=== PATIENT | male | born 1980 | race Asian ===

== ENCOUNTER 2016-07-18 18:17 | Emergency (ER) | payer SELFPAY ==
[~2016-07-18] VITALS: Ht 182.9 cm; Wt 91.0 kg
[2016-07-18] MEDS ORDERED: LORazepam 1MG TABLET PO ONE (18:30)
[2016-07-18] MEDS ORDERED: HYDR-883 PO (18:58)
[2016-07-18] MEDS ORDERED: SODIUM CHLORIDE FLUSH 10ML SYR IVF ONE (19:00)
[2016-07-18] MEDS ORDERED: PLEASE ENTER ALLERGIES MC SCH ×2 (19:00)
[2016-07-18] MEDS ORDERED: PLEASE ENTER HEIGHT AND WEIGHT MC SCH (19:00)
[2016-07-18] MEDS ORDERED: LORazepam 1MG TABLET ONE (19:09)
[2016-07-18 19:11] LABS: BLOOD UREA NITROGEN 12 mg/dL (7-18)
[2016-07-18 19:15] LABS: ASPARTATE AMINO TRANSFERASE 18 U/L (15-37)
[2016-07-18 19:17] LABS: IS PT STATUS REG ER OR PRE ER? YES
[2016-07-18 19:19] VITALS: BP 117/84
== END 2016-07-18 19:46 | disposition left against medical advice (07) ==
LOC: ED 18:30
DX: S00.81XA Abrasion of other part of head, initial encounter (principal); S60.512A Abrasion of left hand, initial encounter; S60.511A Abrasion of right hand, initial encounter; S80.212A Abrasion, left knee, initial encounter; R41.0 Disorientation, unspecified; W22.8XXA Striking against or struck by other objects, initial encounter; Y93.89 Activity, other specified; Y92.89 Other specified places as the place of occurrence of the external cause; Y99.8 Other external cause status
CPT/HCPCS: 36415; 71010; 80053; 80307; 84484; 85025; 93005

== ENCOUNTER 2018-07-21 21:44 | Emergency (ER) | payer OTHER ==
[~2018-07-21] VITALS: Ht 188 cm; Wt 108.2 kg
[~2018-07-21 21:44] MED LIST: HYDR-3652 PO
[2018-07-21 21:45] VITALS: BP 125/70
[2018-07-21] MEDS ORDERED: BUPIVACAINE 0.25% ONE (22:10)
[2018-07-21] MEDS ORDERED: LIDOCAINE-MPF 1%, 5ML ONE (22:10)
[2018-07-21] MEDS ORDERED: LIDOCAINE-MPF 1%, 5ML INFIL ONE (22:30)
[2018-07-21] MEDS ORDERED: BUPIVACAINE 0.25% INFIL ONE (22:30)
--- NOTE | 2018-07-21 22:49 | NUR ---
DC EDUCATION PROVIDED, PT DEMONSTRATES UNDERSTANDING. PT AMBULATED STEADILY TO DC WITH RN.
== END 2018-07-21 22:51 | disposition home or self-care (01) ==
LOC: ED 22:45
DX: K04.7 Periapical abscess without sinus (principal)
CPT/HCPCS: 64400; 99284

== ENCOUNTER 2019-08-26 20:43 | Emergency (ER) | payer MEDICAID ==
[~2019-08-26] VITALS: Ht 185.4 cm; Wt 91.0 kg
[2019-08-26 20:46] VITALS: BP 112/79
== END 2019-08-26 22:25 | disposition home or self-care (01) ==
LOC: ED 21:40
DX: S43.102A Unspecified dislocation of left acromioclavicular joint, initial encounter (principal); F15.10 Other stimulant abuse, uncomplicated; V29.9XXA Motorcycle rider (driver) (passenger) injured in unspecified traffic accident, initial encounter; Y93.89 Activity, other specified; Y92.410 Unspecified street and highway as the place of occurrence of the external cause; Y99.8 Other external cause status
CPT/HCPCS: 99283

== ENCOUNTER 2019-10-14 14:25 | Emergency (ER) | payer MEDICAID ==
[~2019-10-14] VITALS: Ht 185.4 cm; Wt 85.0 kg
[2019-10-14 14:46] VITALS: BP 117/72
--- NOTE | 2019-10-14 14:58 | NUR ---
TASK RN: PT RESTING COMFORTABLY IN [facility] AT THIS TIME WITH CALL LIGHT WITHIN REACH;
[2019-10-14] MEDS ORDERED: HYDROcodone/APAP 5/325 TABLET PO STA (15:32)
[2019-10-14] MEDS ORDERED: CEPHALEXIN 500 MG CAPSULE ONE (15:37)
[2019-10-14] MEDS ORDERED: HYDROcodone/APAP 5/325 TABLET ONE (15:37)
[2019-10-14] MEDS ORDERED: SULFAMETH./TRIMETHOPRIM DS 800MG/160MG TABLET ONE (15:37)
[2019-10-14] MEDS ORDERED: CEPHALEXIN 500 MG CAPSULE PO ONE (16:00)
[2019-10-14] MEDS ORDERED: SULFAMETH./TRIMETHOPRIM DS 800MG/160MG TABLET PO ONE (16:00)
== END 2019-10-14 16:18 | disposition home or self-care (01) ==
LOC: ED 16:12
DX: L03.116 Cellulitis of left lower limb (principal); M25.572 Pain in left ankle and joints of left foot; F17.200 Nicotine dependence, unspecified, uncomplicated
CPT/HCPCS: 99284

== ENCOUNTER 2019-10-18 16:11 | Emergency (ER) | payer MEDICAID ==
[~2019-10-18] VITALS: Ht 185.4 cm; Wt 86.2 kg
--- NOTE | 2019-10-18 16:57 | NUR ---
Patient recently in ED 10/14/19 for cellulitis of left ankle, and sent home with abx. Patient states he woke up this morning and his left ankle was swollen, tender, red and warm to the touch. There is an abcess on the inside of his left ankle that he states "broke open this morning and started leaking." Patient c/o of 10/10 ankle pain. Patient A&Ox4, his left ankle is warm, red and tender upon palpation. No further needs at this time.
[2019-10-18] MEDS ORDERED: LIDOCAINE 1%, 10ML INFIL ONE (17:00)
[2019-10-18] MEDS ORDERED: LIDOCAINE-MPF 1%, 5ML ONE (17:04)
[2019-10-18] MEDS ORDERED: MORPHINE SULFATE 4 MG/ML, 1ML ONE ×2 (17:20→19:02)
[2019-10-18] MEDS ORDERED: VANCOMYCIN PER PHARMACY MC PRN (17:30)
[2019-10-18] MEDS ORDERED: PIPERACILLIN/TAZO/PMX 3.375GM 50 ML ONE (17:46)
[2019-10-18 17:51] LABS: BASOPHILS # (AUTO) 0.04 x10^3/uL (0-0.1); BASOPHILS % (AUTO) 0 % (0-1); EOSINOPHILS # (AUTO) 0.12 x10^3/uL (0-0.4); EOSINOPHILS % (AUTO) 1 % (1-7); LYMPHOCYTES # (AUTO) 1.59 x10^3/uL (1-3.4); LYMPHOCYTES % (AUTO) 17 % (22-44); MD NO; MEAN CORPUSCULAR HEMOGLOBIN 29.1 pg (27.5-34.5); MEAN CORPUSCULAR HGB CONC 33.7 g/dL (33.2-36.2); MEAN PLATELET VOLUME 8.2 fL (7.4-10.4); MONOCYTES # (AUTO) 0.57 x10^3/uL (0.2-0.8); MONOCYTES % (AUTO) 6 % (2-9); NEUTROPHILS # (AUTO) 7.24 x10^3/uL (1.8-6.8); NEUTROPHILS % (AUTO) 76 % (42-75); PLATELET COUNT 337 x10^3/uL (130-400); RED BLOOD COUNT 4.83 x10^6/uL (4.38-5.82)
[2019-10-18 17:56] LABS: ALBUMIN 3.3 g/dL (3.4-5.0); ANION GAP 7 mmol/L (5-15); CALCIUM 8.9 mg/dL (8.5-10.1); CHLORIDE 99 mmol/L (98-107); CREATININE 1.06 mg/dL (0.7-1.3)
[2019-10-18] MEDS ORDERED: PIPERACILLIN/TAZO/PMX 3.375GM 50 ML IV ONE (18:00)
[2019-10-18] MEDS ORDERED: SODIUM CHLORIDE FLUSH 10ML SYR IVF ONE (18:00)
[2019-10-18] MEDS: MORPHINE SULFATE 4 MG/ML, 1ML IV PRN ×2 (18:00→19:04)
--- NOTE | 2019-10-18 18:00 | NUR ---
PT MEDICATED ORDERED FOR 12/30 PAIN. PT AWARE THAT WE ARE WAITING FOR LAB/IMAGING RESULTS. PT AO X 4. SKIN PWD, APART FROM LLE WHICH HAS REDNESS, SWELLING AND OPEN WOUND APPROX THE SIZE OF A QUARTER. PT ON CONT BP AND SPO2 MONITORS. CALL LIGHT WITHIN REACH. WILL CONT TO MONITOR PT.
--- NOTE | 2019-10-18 18:33 | NUR ---
LAB IN ROOM TO DRAW PATIENT'S IONIZED CALCIUM. PATIENT IS REFUSING, DUE TO BEING A DIFFICULT STICK AND NOT WANTING TO BE "POKED ANYMORE." PROVIDER MADE AWARE.
[2019-10-18] MEDS ORDERED: VANCOMYCIN 2,200 MG in SODIUM CHLORIDE 0.9% 500 ML IV ONE (19:00)
[2019-10-18] MEDS ORDERED: NEOSPORIN OINT. PKT 1 PACKET ONE (21:13)
[2019-10-18 21:19] VITALS: BP 123/66
== END 2019-10-18 21:22 | disposition home or self-care (01) ==
LOC: ED 19:31
DX: L03.116 Cellulitis of left lower limb (principal); M25.572 Pain in left ankle and joints of left foot
CPT/HCPCS: 36415; 73610; 73630; 80048; 82040; 83605; 84145; 85025; 87040; 96365; 96366; 96367; 96375; 96376; 99284; J2270; J2543; J3370; J3490; J7040

== ENCOUNTER 2020-02-27 04:18 | Emergency (ER) | payer MEDICAID ==
[~2020-02-27] VITALS: Ht 185.4 cm; Wt 92.5 kg
--- NOTE | 2020-02-27 04:37 | NUR ---
THIS IS A 39Y M THAT COMES IN TONIGHT FOR "CELLUILITIS IN BOTH MY CALVES" PT REPORTS SHOOTING METH INTO R CALF BUT STS HE DID NOT SHOOT UP INTO HIS LEFT BUT IT IS ALSO RED AND PAINFUL. PT RESTING ON MAZIN MARTINS CONNECTED TO MONITORING
[2020-02-27 06:24] LABS: BASOPHILS % (AUTO) 1 % (0-1); EOSINOPHILS % (AUTO) 5 % (1-7); LYMPHOCYTES % (AUTO) 22 % (22-44); MEAN CORPUSCULAR HEMOGLOBIN 29.4 pg (27.5-34.5); MEAN CORPUSCULAR HGB CONC 34.7 g/dL (33.2-36.2); MEAN PLATELET VOLUME 7.5 fL (7.4-10.4); MONOCYTES % (AUTO) 9 % (2-9); NEUTROPHILS % (AUTO) 64 % (42-75); PLATELET COUNT 249 x10^3/uL (130-400); RED BLOOD COUNT 4.16 x10^6/uL (4.38-5.82); RED CELL DISTRIBUTION WIDTH 13.8 % (9.4-14.8)
[2020-02-27 06:29] LABS: ANION GAP 5 mmol/L (5-15); CALCIUM 8.6 mg/dL (8.5-10.1); CHLORIDE 102 mmol/L (98-107)
[2020-02-27 06:31] LABS: MD NO
[2020-02-27 06:33] LABS: ALANINE AMINOTRANSFERASE 14 U/L (12-78); ALKALINE PHOSPHATASE 107 U/L (45-117); BILIRUBIN,TOTAL 0.5 mg/dL (0.2-1.0); CREATININE 0.66 mg/dL (0.7-1.3); TOTAL PROTEIN 7.2 g/dL (6.4-8.2)
[2020-02-27 07:06] VITALS: BP 114/64
== END 2020-02-27 07:10 | disposition home or self-care (01) ==
LOC: ED 07:04
DX: L03.115 Cellulitis of right lower limb (principal); L03.116 Cellulitis of left lower limb; I88.8 Other nonspecific lymphadenitis; M54.5 Low back pain
CPT/HCPCS: 36415; 80053; 85025; 93970; 99284

== ENCOUNTER 2020-10-15 21:56 | Inpatient (IN) | payer MEDICAID ==
[~2020-10-15] VITALS: Ht 185.4 cm; Wt 84.4 kg
[~2020-10-15 21:56] MED LIST changes: +HYDR-1067 PO; -HYDR-3652 PO
[2020-10-15] MEDS ORDERED: AMPICILLIN/SULBACTAM 3 GM in SODIUM CHLORIDE 0.9% 100 ML IV ONE (22:30)
[2020-10-15] MEDS ORDERED: MORPHINE SULFATE 4 MG/ML, 1ML IVPush PRN (22:30)
[2020-10-15] MEDS ORDERED: SODIUM CHLORIDE FLUSH 10ML SYR IVF ONE (22:30)
[2020-10-15] MEDS ORDERED: SODIUM CHLORIDE 0.9% 1,000ML IVBOLUS ONE (22:30)
[2020-10-15] MEDS ORDERED: VANCOMYCIN PER PHARMACY MC ONE (22:30)
[2020-10-15] MEDS ORDERED: ONDANSETRON 2MG/ML, 2ML IVPush ONE (22:30)
[2020-10-15] MEDS ORDERED: VANCOMYCIN 2,000 MG in SODIUM CHLORIDE 0.9% 500 ML IV ONE (23:00)
--- NOTE | 2020-10-15 23:33 | NUR ---
Pt arrived with L arm swelling and discomfort. Changed into gown and placed on BP and O2 monitos. Known hx of IV drug use, US IV placed. A&O x4, VSS, ABDULKADIRN.
--- NOTE | 2020-10-15 23:40 | NUR ---
Blood cultures drawn prior to IV antibiotic admin
[2020-10-15] MEDS ORDERED: MORPHINE SULFATE 4 MG/ML, 1ML ONE (23:41)
[2020-10-15] MEDS ORDERED: ONDANSETRON 2MG/ML, 2ML ONE (23:41)
[2020-10-16 00:10] LABS: BASOPHILS % (AUTO) 0 % (0-1); EOSINOPHILS % (AUTO) 1 % (1-7); LYMPHOCYTES % (AUTO) 9 % (22-44); MEAN CORPUSCULAR HEMOGLOBIN 27.7 pg (27.5-34.5); MEAN CORPUSCULAR HGB CONC 33.6 g/dL (33.2-36.2); MEAN PLATELET VOLUME 7.9 fL (7.4-10.4); MONOCYTES % (AUTO) 3 % (2-9); NEUTROPHILS % (AUTO) 87 % (42-75); PLATELET COUNT 532 x10^3/uL (130-400); RED BLOOD COUNT 3.75 x10^6/uL (4.38-5.82); RED CELL DISTRIBUTION WIDTH 13.9 % (9.4-14.8)
[2020-10-16 00:20] LABS: ALBUMIN 2.1 g/dL (3.4-5.0); ANION GAP 3 mmol/L (5-15); CALCIUM 8.2 mg/dL (8.5-10.1); CHLORIDE 92 mmol/L (98-107)
[2020-10-16 00:23] LABS: ALANINE AMINOTRANSFERASE 60 U/L (12-78); ALKALINE PHOSPHATASE 204 U/L (45-117); BILIRUBIN,TOTAL 0.6 mg/dL (0.2-1.0); CREATININE 0.68 mg/dL (0.7-1.3); TOTAL PROTEIN 7.9 g/dL (6.4-8.2)
[2020-10-16 00:30] LABS: <PLATELET ESTIMATE> INCREASED; LARGE PLATELETS 1+; POLYCHROMASIA 1+
[2020-10-16 00:31] LABS: MICROCYTOSIS 1+; STOMATOCYTES 1+
[2020-10-16 00:32] LABS: PMNS WITH VACUOLES 1+
[2020-10-16] MEDS ORDERED: OMNIPAQUE 350 MG/ML, 100ML BOTTLE ONE (01:45)
[2020-10-16] MEDS ORDERED: HYDROmorphone 1 MG/ML, 1ML INJ ONE (02:00)
[2020-10-16] MEDS ORDERED: HYDROmorphone 1 MG/ML, 1ML INJ IV ONE (02:00)
--- NOTE | 2020-10-16 02:21 | NUR ---
hospitalist at bedside
[2020-10-16] MEDS ORDERED: POLYETHYLENE GLYCOL 17 GM PACKET PO PRN (02:30)
[2020-10-16] MEDS ORDERED: LABETALOL 5MG/ML, 20ML IVPush PRN (02:30)
[2020-10-16] MEDS ORDERED: ONDANSETRON 2MG/ML, 2ML IVPush PRN (02:30)
[2020-10-16] MEDS ORDERED: MELATONIN 5 MG TABLET PO PRN (02:30)
[2020-10-16] MEDS ORDERED: KETOROLAC 30 MG/1 ML IV PRN (02:30)
[2020-10-16] MEDS ORDERED: LACTATED RINGERS 1,000 ML IV SCH (02:30)
[2020-10-16] MEDS ORDERED: HYDROmorphone 2 MG/ML, 1ML IVPush PRN (02:30)
--- NOTE | 2020-10-16 02:35 | NUR ---
Pt provided snack and juice, NADN, VSS
--- NOTE | 2020-10-16 02:52 | NUR ---
Report to Rod ALANIS
[2020-10-16] MEDS ORDERED: VANCOMYCIN PER PHARMACY MC PRN (03:00)
[2020-10-16] MEDS: ACETAMINOPHEN 325 MG TABLET PO SCH ×4 (03:51→15:16)
[2020-10-16 03:57] VITALS: BP 97/55
[2020-10-16] MEDS ORDERED: PHARMACOKINETIC MONITORING MC PRN (04:00)
[2020-10-16] MEDS ORDERED: CEFEPIME 2 GM in DEXTROSE 5% 100 ML IV SCH (06:00)
[2020-10-16 06:56] VITALS: BP 113/61
[2020-10-16] MEDS ORDERED: OXYcodone/APAP 5/325MG TABLET PO PRN (10:30)
[2020-10-16] MEDS ORDERED: AMOX1TAB64 PO (11:42)
[2020-10-16] MEDS ORDERED: VANCOMYCIN 1,700 MG in SODIUM CHLORIDE 0.9% 250 ML IV SCH (12:00)
[2020-10-16 12:58] VITALS: BP 97/62
[2020-10-16] MEDS ORDERED: CEFEPIME 2 GM in DEXTROSE 5% 50 ML IV SCH (14:00)
== END 2020-10-16 17:45 | disposition left against medical advice (07) | DRG 872 ==
LOC: ED 10-16 → EDIP 10-16 03:35 → 4NE 10-16 03:38
PROVIDERS: ADMIT Internal Medicine; ATTEND Family Medicine
DX: A41.9 Sepsis, unspecified organism (principal); S22.39XA Fracture of one rib, unspecified side, initial encounter for closed fracture; S32.9XXA Fracture of unspecified parts of lumbosacral spine and pelvis, initial encounter for closed fracture; L02.414 Cutaneous abscess of left upper limb; L03.114 Cellulitis of left upper limb; Z53.29 Procedure and treatment not carried out because of patient's decision for other reasons; F17.210 Nicotine dependence, cigarettes, uncomplicated; F19.10 Other psychoactive substance abuse, uncomplicated; X58.XXXA Exposure to other specified factors, initial encounter; Y93.89 Activity, other specified; Y92.89 Other specified places as the place of occurrence of the external cause; Y99.8 Other external cause status; Z88.8 Allergy status to other drugs, medicaments and biological substances; Z79.899 Other long term (current) drug therapy
CPT/HCPCS: 36415; 80053; 83605; 84145; 85025; 87040; 96361; 96374; 96375; G0378; J0295; J1170; J1885; J2405; J3370; Q9967; J2270; J7030; J7040; J7050; J7120